=== PATIENT | female | born 1955 | race Caucasian/White ===

== ENCOUNTER 2023-07-19 07:20 | Day surgery (SDC) | payer BC, MEDICARE ==
[~2023-07-19] VITALS: Ht 160 cm; Wt 79.0 kg
[2023-07-19 07:33] VITALS: BP 132/70
[2023-07-19] MEDS ORDERED: TOPROL XL25 MG PO (07:37)
[2023-07-19] MEDS ORDERED: K-TAB ER20 MEQ PO (07:38)
[2023-07-19] MEDS ORDERED: TRAMADOL HCL50 MG PO (07:38)
[2023-07-19] MEDS ORDERED: VOLNEA 0.15-0.1 EACH PO (07:38)
[2023-07-19] MEDS ORDERED: ZESTORETIC 20-1 EACH PO (07:38)
[2023-07-19] MEDS ORDERED: REGLAN10 MG PO (07:39)
[2023-07-19] MEDS ORDERED: RESTORIL30 MG PO (07:39)
[2023-07-19] MEDS ORDERED: AMPHETAMINE SAL10 MG PO (07:40)
[2023-07-19] MEDS ORDERED: DICLOFENAC POTA50 MG PO (07:41)
--- NOTE | 2023-07-19 09:13 | NUR ---
07/19/23 0913 Zakiya Colbert 0902 PT TO PACU FROM OR. RESPIRATIONS EVEN AND UNLAORED. O2 PER NC AT 3L. PT AWAKE AND DROWSY. 0911 DR XIONG IN TO TALK TO PT ABOUT RESULTS. PT STATES UNDERSTANDING AND IS ALERT AND ORIENTED.
--- NOTE | 2023-07-19 09:35 | OR ---
[facility] [address] [place], [place] [address] Signed DATE OF OPERATION: 07/19/2023 SURGEON: Hannah Xiong MD PREOPERATIVE DIAGNOSES: 1. Family history of colon cancer (uncle). 2. Episodic rectal bleeding and occasional fecal leakage. POSTOPERATIVE DIAGNOSES: 1. Sigmoid and left-sided diverticulosis. 2. Minimal internal hemorrhoidal disease. PROCEDURES: Total colonoscopy to cecum with biopsy of rectum. ANESTHESIA: Intravenous sedation, fentanyl 150 mcg and Versed 8 mg. INDICATIONS FOR THE PROCEDURE: A 67-year-old white woman with family history of colon cancer in her uncle. She is a patient of KODY Corrales. She has no symptoms of constipation or diarrhea per se, but has had episodes of some fecal leakage and episodic rectal bleeding. She is admitted at this time to undergo colonoscopy on the basis of those findings. She understands the risk of bleeding, infection, and perforation. FINDINGS: The prep was adequate. Complete colonoscopy was undertaken of the cecum with good visualization of appendiceal orifice and the ileocecal valve. There were numerous diverticula of the sigmoid and left colon. There was no actual polyp or leilani colitis. Biopsy was taken of the rectum to assess for occult colitis. She did have minimal internal hemorrhoidal changes. DESCRIPTION OF PROCEDURE: The patient was brought to the endoscopy suite and placed in the lateral decubitus position, given intravenous sedation to the point of slurred speech and nystagmus. Digital rectal examination was normal. Full cardiopulmonary monitoring was maintained. Digital rectal examination was normal. An Olympus video colonoscope was passed into the rectum and manipulated throughout the colon noting diverticula of the sigmoid and left colon. Scope was ultimately advanced Electronically Signed By: HANNAH XIONG MD 07/19/23 0935 PATIENT NAME: CASSIDY LING OPERATIVE REPORT DATE OF : 53 REPORT #: [id number] PHYSICIAN: HANNAH XIONG MD PCP: CATALINA MOLINA PA-C REPORT IS CONFIDENTIAL AND NOT TO BE RELEASED WITHOUT AUTHORIZATION [facility] [address], [place] [address] Signed to the cecum. The ileocecal valve and appendiceal orifice were normal. Irrigation was undertaken as necessary and the scope carefully withdrawn. Examination throughout showed only diverticula as previously noted and in the rectum, retroflexed view showed minimal hemorrhoidal change. Biopsies taken of the rectum to assess for occult colitis. The scope was straightened, withdrawn, and removed. The patient was taken to the recovery room in good condition. CONCLUDING DIAGNOSIS: Diverticulosis. PLAN: Recommend high-fiber diet or fiber supplement to assist in her symptoms. If she should have recurrent bleeding, she will call me, for which internal hemorrhoidal banding might be considered. She will return to the ongoing care of Catalina Molina otherwise. MD FANTA Vaughn/LENORE /[id number] cc: KODY Corrales Copies: ~ Electronically Signed By: HANNAH XIONG MD 07/19/23 0935 PATIENT NAME: CASSIDY LING OPERATIVE REPORT DATE OF : 53 REPORT #: [id number] PHYSICIAN: HANNAH XIONG MD PCP: CATALINA MOLINA PA-C REPORT IS CONFIDENTIAL AND NOT TO BE RELEASED WITHOUT AUTHORIZATION
[2023-07-19 09:37] VITALS: BP 105/79
--- NOTE | 2023-07-21 15:44 | PATH ---
[facility] [address] [place], [place] [address] Signed SPECIMEN(S): A RECTUM BIOPSY SPECIMEN SOURCE: A. RECTUM BIOPSY CLINICAL HISTORY: Colonoscopy with possible biopsy. Family history colon cancer/screening. Diarrhea. diverticulosis. FINAL PATHOLOGIC DIAGNOSIS: Rectum, biopsy: - Benign colonic mucosa with slight hyperplastic features. - Negative for pathologic inflammation. JVR:carolina MICROSCOPIC EXAMINATION: Histologic sections of all submitted blocks are examined by light microscopy. These findings, together with the gross examination, support the pathologic diagnosis. GROSS DESCRIPTION: The specimen, labeled and designated "Fine, rectum biopsy," is received in formalin and consists of four mckeon, soft tissue fragments, ranging from 0.1-0.2 cm. Entirely submitted in (A1). VB (under the direct supervision of a pathologist) The Gross Description was prepared using a voice recognition system. The report was reviewed for accuracy; however, sound-alike word errors, addition and/or deletions may occur. If there is any question about this report, please contact Client Services. ADDITIONAL NOTES: Immunohistochemical and/or in situ hybridization studies if performed in this case included appropriate positive controls that reacted as expected. This test was developed and its performance characteristics determined by [facility]. It has not been cleared or approved by the U.S. Food and Drug Administration. The FDA has determined that such clearance or approval is not necessary. This test is used for clinical purposes. It should not be regarded as investigational or for research. [facility] is certified under the Clinical Laboratory Improvement Amendments of 1988 (CLIA) as qualified to perform high complexity clinical PATIENT NAME: CASSIDY LING PATHOLOGY DATE OF : 53 REPORT #: [id number] PHYSICIAN: KENTRELL PARKER PCP: CATALINA CROWLEY PA-C REPORT IS CONFIDENTIAL AND NOT TO BE RELEASED WITHOUT AUTHORIZATION [facility] [address] [facility] [place], [place] [address] Signed laboratory testing. PERFORMING LABORATORY: Technical component was performed by [facility], [address] [place] [address] (CLIA# [id number]). Professional interpretation was performed by [facility], [address] [place] [id number] (CLIA#: [id number]). Diagnostician: Carlos Gannon MD Pathologist Electronically Signed 07/21/2023 Copies: ~ PATIENT NAME: CASSIDY LING PATHOLOGY DATE OF : 53 REPORT #: [id number] PHYSICIAN: KENTRELL PARKER PCP: CATALINA CROWLEY PA-C REPORT IS CONFIDENTIAL AND NOT TO BE RELEASED WITHOUT AUTHORIZATION
== END 2023-07-19 09:52 | disposition home or self-care (01) ==
LOC: DS 07:20 → OPS 07:20 → DS 08:15 → OPS 08:15
PROVIDERS: ATTEND Surgery
PROC: 0DBP8ZX Excision of Rectum, Via Natural or Artificial Opening Endoscopic, Diagnostic (ICD-10-PCS; principal; 2023-07-19 08:15)
DX: K57.31 Diverticulosis of large intestine without perforation or abscess with bleeding (principal); Z80.0 Family history of malignant neoplasm of digestive organs; I10 Essential (primary) hypertension; Z90.89 Acquired absence of other organs; K64.8 Other hemorrhoids
CPT/HCPCS: 99153; G0500; J2250; J2405; J3010; J7121